=== PATIENT | male | born 1980 | race African-American/Black ===

== ENCOUNTER 2020-02-03 15:01 | Emergency (ER) | payer OTHER, SELFPAY ==
[2020-02-03] MEDS ORDERED: Ketorolac Tromethamine 30 MG/ML VIAL ONE (15:28)
[2020-02-03 15:53] LABS: Bilirubin Negative (Negative); Blood, Urine Negative (Negative); Clarity Clear (Clear); Glucose, Urine (Dipstick) Normal (Negative); Leukocyte Negative Leu/uL (Negative); Nitrite Negative (Negative); Protein, Urine (Dipstick) Negative (Neg-Trace); Urobilinogen Normal mg/dL (Less than 2)
--- NOTE | 2020-02-03 17:32 | ULT ---
TESTICULAR ULTRASOUND WITH DUPLEX AND COLOR FLOW AND SPECTRAL DOPPLER IMAGING: History: Trauma. Patient states that he has always felt one testicle in his scrotum. Scrotal pain. FINDINGS: The left testicle is not visualized. The right testicle measures 3.2 x 3.6 x 2 cm without focal mass. There is microlithiasis. in the right testicle. There is normal flow to the right testes. The epidid ymis has a normal appearance. No hydrocele is seen. IMPRESSION: Unilateral right intrascrotal testes with microlithiasis. RECOMMENDATION: A follow up exam should be obtained in one year. Code T POS: FANI
[2020-02-05 20:27] LABS: Chlam.trachomatis by PCR,Urine Not Detected (NotDetected)
== END 2020-02-03 17:05 | disposition home or self-care (01) ==
LOC: ERS 15:01
DX: S39.94XA Unspecified injury of external genitals, initial encounter (principal); Z87.890 Personal history of sex reassignment; V29.9XXA Motorcycle rider (driver) (passenger) injured in unspecified traffic accident, initial encounter
CPT/HCPCS: 76870; 81003; 87491; 87591; 93976; 96372; J1885